=== PATIENT | male | born 1950 | race Caucasian/White ===

== ENCOUNTER 2019-01-25 15:01 | Emergency (ER) | payer MEDICARE, BC ==
[2019-01-25] MEDS ORDERED: HYDROmorphone 1 MG/ML Syringe IM ONE ×4 (15:44→22:44)
[2019-01-25] MEDS ORDERED: Ondansetron 4 MG Tab.DIS PO ONE (15:44)
--- NOTE | 2019-01-25 16:56 | EDM.PDOC ---
<Brien Soto - Last Filed: 01/25/19 18:18> ED HPI GENERAL MEDICAL PROBLEM - General Chief Complaint: Upper Extremity Injury/Pain Stated Complaint: POSSIBLE BROKEN LEFT ARM Time Seen by Provider: 01/25/19 15:43 Source of Information: Reports: Patient History Limitations: Reports: No Limitations - History of Present Illness INITIAL COMMENTS - FREE TEXT/NARRATIVE: This patient slipped on ice just a short while prior to arrival and landed on his left elbow. He complains of severe pain in the left elbow. No other injuries. Left Arm Pain Score (Numeric/FACES): 9 - Related Data Allergies Allergy/AdvReac Type Severity Reaction Status Date / Time vancomycin Allergy Severe Anaphylactic Verified 01/25/19 15:19 Shock Aminoglycosides Allergy Swelling Verified 01/25/19 15:19 clopidogrel Allergy Rash Verified 01/25/19 15:19 Iodinated Contrast- Oral and Allergy Rash Verified 01/25/19 15:19 IV Dye [Iodinated Contrast Media - IV Dye] ticagrelor [From BRILINTA] Allergy Rash Verified 01/25/19 15:19 Home Meds: Home Meds ALPRAZolam [Xanax] 0.5 tab PO BEDTIME PRN 12/07/13 [History] Metoprolol Tartrate [Lopressor] 50 mg PO BID 12/07/13 [History] Imipramine HCl [Tofranil] 50 - 150 mg PO DAILY PRN 06/04/16 [History] Ranitidine HCl [Ranitidine] 150 mg PO BID 06/04/16 [History] Aspirin [Adult Aspirin] 81 mg PO DAILY 05/30/18 [History] Colchicine 0.5 mg PO DAILY 05/30/18 [History] Diltiazem HCl [Diltiazem 24Hr ER] 1 cap PO DAILY 05/30/18 [History] Pravastatin Sodium 20 mg PO QPM 05/30/18 [History] NIFEdipine [Nifedipine ER] 30 mg PO DAILY 06/07/18 [History] Clopidogrel Bisulfate [Clopidogrel] 75 mg PO BEDTIME 01/25/19 [History] Colchicine/Probenecid [Probenecid-Colchicine Tablets] 1 tab PO DAILY 01/25/19 [ History] Furosemide 20 mg PO DAILY 01/25/19 [History] amLODIPine Besylate [Amlodipine Besylate] 10 mg PO DAILY 01/25/19 [History] Past Medical History Cardiovascular History: Reports: High Cholesterol, Hypertension Respiratory History: Reports: Asthma Gastrointestinal History: Reports: Gastritis, GERD Musculoskeletal History: Reports: Back Pain, Chronic Psychiatric History: Reports: Other (See Below) Other Psychiatric History: insomnia - Past Surgical History Cardiovascular Surgical History: Reports: Carotid Stents, Coronary Artery Bypass , Percutaneous Transluminal Angioplasty Respiratory Surgical History: Reports: None GI Surgical History: Reports: Hernia, Abdominal, Nafisa Fundoplication Neurological Surgical History: Reports: Lumbar Spine, Spinal Fusion Social & Family History - Tobacco Use Smoking Status *Q: Never Smoker - Caffeine Use Caffeine Use: Reports: Soda - Recreational Drug Use Recreational Drug Use: No Review of Systems - Review of Systems Review Of Systems: ROS reveals no pertinent complaints other than HPI. ED EXAM, GENERAL - Physical Exam Exam: See Below Exam Limited By: No Limitations General Appearance: Alert, Moderate Distress Extremities: Other (Severe swelling of the left elbow with decreased range of motion. There is some moderate tenderness from the mid shaft the humerus all the way to about the middle of the forearm. Neurovascular tendon is all intact to the hand. This is a closed fracture) Course - Vital Signs Last Recorded V/S: Last Vital Signs Temp 36.2 C 01/25/19 15:53 Pulse 70 01/25/19 18:56 Resp 16 01/25/19 18:56 BP 154/74 H 01/25/19 18:56 Pulse Ox 92 L 01/25/19 18:56 - Orders/Labs/Meds Meds: Medications Discontinued Medications Generic Name Dose Route Start Last Admin Trade Name Shaq PRN Reason Stop Dose Admin Hydromorphone HCl 1 mg 01/25/19 15:44 01/25/19 15:51 Dilaudid IM 01/25/19 15:45 1 mg ONETIME ONE Administration Hydromorphone HCl 1 mg 01/25/19 17:58 01/25/19 18:12 Dilaudid IM 01/25/19 17:59 1 mg ONETIME ONE Administration Hydromorphone HCl 1 mg 01/25/19 20:18 01/25/19 20:27 Dilaudid IM 01/25/19 20:19 1 mg ONETIME ONE Administration Hydromorphone HCl 1 mg 01/25/19 22:44 Dilaudid IM 01/25/19 22:45 ONETIME ONE Ondansetron HCl 4 mg 01/25/19 15:44 01/25/19 15:51 Zofran Odt PO 01/25/19 15:45 4 mg ONETIME ONE Administration - Radiology Interpretation Free Text/Narrative:: Severe comminuted fracture of the proximal radius. Proximal fragment of the ulna rotated and displaced posteriorly - Re-Assessments/Exams Free Text/Narrative Re-Assessment/Exam: 01/25/19 16:56 This patient received Dilaudid 1 mg IM and Zofran ODT 4 mg sublingual. This gave fairly good pain control. 01/25/19 18:18 Orthopedics in [facility] is unable to care for this level of injury. I contacted orthopedics at [facility]. The physician I spoke with said that this would need to go to the upper extremity specialist who is [employer] executive tonight and that doctors in surgery right now and is not expected to be free for about 2 hours. He will give us a call as soon as he is available. In the meantime we placed this man and a sling he's been given a second injection of Dilaudid keep him comfortable he'll be nothing by mouth. And we got him out of the wheelchair into the stretcher. I spoke with Dr. Palafox and she will be assuming care at this time Departure - Departure Disposition: DC/Tfer to [facility] Clinical Impression: Closed comminuted fracture of proximal ulna - Discharge Information Referrals: Enmanuel Keen Sr, [Primary Care Provider] - Forms: ED Department Discharge Care Plan Goals: transfer to The ER at [facility] per basic life support <Rivka Palafox - Last Filed: 01/25/19 22:48> Course - Re-Assessments/Exams Free Text/Narrative Re-Assessment/Exam: pt has continued to receive dilaudid im for pain. [facility] did not feel they had anyone to do this repair. [facility] was contacted and Dr Castaneda was consulted. He felt that a reduction should be done on the elebow. It was also noted on cat scan that he had a large hemarthosis. 01/25/19 22:45 Departure - Departure Time of Disposition: 22:47
--- NOTE | 2019-01-25 17:05 | CRLCR ---
INDICATION: Trauma TECHNIQUE: Two views left forearm COMPARISON: None FINDINGS: Bones: Displaced comminuted fracture proximal ulna. Difficult to evaluate for radial head fracture. Radial head view may be helpful to further characterize. Joint spaces: Unremarkable. Soft tissues: Soft tissue edema dorsal to the proximal forearm. IMPRESSION: Displaced comminuted fracture proximal ulna. Probable radial head fracture. Radial head view may be helpful to further characterize as well as post reduction views. Dictated by Mark Griffith MD @ Jan 25 2019 4:57PM Signed by Dr. Mark Griffith @ Jan 25 2019 5:02PM
--- NOTE | 2019-01-25 17:09 | CRLCR ---
INDICATION: Fall TECHNIQUE: Two views left humerus COMPARISON: None FINDINGS: Bones: Fracture fragments noted adjacent to the proximal forearm. Joint spaces: The left elbow joint is not well characterized due to the obliquity. Soft tissues: Unremarkable. IMPRESSION: Normal left humerus. Puncture fragments project over the proximal forearm. Difficult to evaluate anatomic alignment at the elbow joint due to obliquity. Dictated by Mark Griffith MD @ 01/25/2019 5:07:37 PM Dictated by: Mark Griffith MD @ 01/25/2019 17:07:43 (Electronically Signed)
--- NOTE | 2019-01-25 22:00 | CRLCT ---
HISTORY: Pain and swelling. FINDINGS: The elbow was studied in the short axis. Sagittal and coronal 2 dimensional reconstructions were then performed. Study is limited in that the elbow was in approximately 90 degrees of flexion. There is a severely comminuted fracture of the proximal ulna. This extends into the region of the coronoid process were there is also fragmentation in this region. The large majority of the articular surface appears intact without evidence for step-off. The proximal ulna remains normally located relative to the distal humerus. There is a comminuted transverse fracture through the proximal metaphysis of the radius with a dominant transverse component and several smaller fracture fragments. There appears to be a slight degree of impaction at the fracture site. The radial head is completely dislocated posteriorly relative to the capitellum. There may be several small fragments from the capitellum as well but the distal humerus is intact. Severe surrounding soft tissue edema is noted. IMPRESSION: 1. Severely comminuted fracture of the proximal ulna without significant involvement of the articular surface and without dislocation. 2. Fracture of the right proximal radius with complete posterior dislocation of the radius relative to the capitellum. Please note that all CT scans at this facility use dose modulation, iterative reconstruction, and/or weight-based dosing when appropriate to reduce radiation dose to as low as reasonably achievable. Dictated by Tato Gold MD @ Jan 26 2019 8:10AM Signed by Dr. Tato Gold @ Jan 26 2019 8:10AM
[2019-01-25 22:59] VITALS: BP 152/83
== END 2019-01-26 00:15 ==
LOC: JP.ED 15:01
DX: S52.002A Unspecified fracture of upper end of left ulna, initial encounter for closed fracture (principal); E78.00 Pure hypercholesterolemia, unspecified; I10 Essential (primary) hypertension; J45.909 Unspecified asthma, uncomplicated; K21.9 Gastro-esophageal reflux disease without esophagitis; W00.0XXA Fall on same level due to ice and snow, initial encounter; Z88.1 Allergy status to other antibiotic agents; Z88.8 Allergy status to other drugs, medicaments and biological substances; Z79.899 Other long term (current) drug therapy
CPT/HCPCS: 73060; 73090; 73200; 96372; 99284; A9270; J1170

== ENCOUNTER 2019-08-10 07:53 | Day surgery (SDC) | payer MEDICARE, BC ==
[~2019-08-10 07:53] MED LIST: Bupivacaine 0.5%/EPINEPHrine 1:200,000 50 ML MDV ONE
[2019-08-10] MEDS ORDERED: fentaNYL 100 MCG/2 ML SDV ONE (08:01)
[2019-08-10] MEDS ORDERED: Midazolam 1 MG/ML 2 ML SDV ONE (08:01)
[2019-08-10] MEDS ORDERED: Propofol 200 MG/20 ML SDV ONE (08:01)
[2019-08-10] MEDS ORDERED: Acetaminophen 500 MG Tab PO ONE (08:15)
[2019-08-10] MEDS ORDERED: Dextrose 5%-Lactated Ringers 1,000 ML IV SCH (08:30)
[2019-08-10] MEDS ORDERED: cefOXitin 2 GM in Sodium Chloride 0.9% 50 ML IV ONE (09:00)
[2019-08-10] MEDS ORDERED: Succinylcholine 200 MG/10 ML MDV ONE (09:23)
[2019-08-10] MEDS ORDERED: Dexamethasone 4 MG/ML SDV ONE (09:23)
[2019-08-10] MEDS ORDERED: Ondansetron 4 MG/2 ML SDV ONE (09:23)
[2019-08-10] MEDS ORDERED: Rocuronium 50 MG/5 ML Vial ONE (09:23)
[2019-08-10] MEDS ORDERED: Tamsulosin 0.4 MG Cap.ER PO ONE (11:18)
[2019-08-10] MEDS ORDERED: Acetaminophen/HYDROcodone 325-5 MG Tab PO PRN (11:28)
[2019-08-10 11:57] VITALS: BP 133/74; PULSE 51
[2019-08-10] MEDS ORDERED: Meropenem 500 MG in Sodium Chloride 0.9% 50 ML IV ONE (12:00)
--- NOTE | 2019-08-13 13:50 | OR ---
DATE OF PROCEDURE: 08/10/2019 SURGEON: Adam Saucedo MD PREOPERATIVE DIAGNOSIS: Symptomatic prolapsing hemorrhoids. POSTOPERATIVE DIAGNOSES: 1. Symptomatic prolapsing hemorrhoids. 2. Circumferential mucosal rectal prolapse. OPERATIVE PROCEDURES: Anal examination under anesthesia with: 1. Proctopexy for rectal prolapse via peritoneal approach (06605). 2. Hemorrhoidectomy (single column of the mixed hemorrhoid )(81460). ANESTHESIA: General. INDICATION FOR PROCEDURE: A 69-year-old presenting with increasingly symptomatic prolapsing hemorrhoids. The plan was to do anorectal examination under anesthesia. Each one of the hemorrhoids was visually prolapsed with some degree of thrombosis, and the patient reports the second hemorrhoid is prolapsing. The plan is to proceed with hemorrhoidectomy and/or other procedures as indicated, based on the intraoperative findings. Potential risks including bleeding, infection, problems with anal incontinence following the procedure, along with remote possibility of cardiopulmonary, septic, or hemorrhagic complications leading to were discussed, and the patient wishes to proceed. DETAILS OF PROCEDURE: The patient was taken to the operating room and placed in a supine position. After general endotracheal anesthesia was induced, the rectal area was then prepped and draped. Digital examination showed an intact musculature. The patient did have quite a bit in the way of loose mucosa. There was a single column of hemorrhoid that was prolapsing. He was seen in the clinic with a small amount of clot within it. The patient was allowed to get some light anesthesia, and with bearing down, the patient had a quite dramatic diffuse circumferential rectal prolapse, again the musculature remaining intact. Given this, we decided at that point to proceed with proctopexy via rectal approach with staple technique, as anything short of that would likely leave the patient with quite a bit in the way of symptoms, and then we will proceed with excision of the single bleeding hemorrhoidal column, which has some clot within it and will likely remain fairly symptomatic. At this point, the anoscope was then passed into the rectum and a pursestring stitch using 3- 0 Prolene was placed roughly 4 to 5 cm above the dentate line. This was placed circumferentially. The proctopexy stapler was then placed with the anvil positioned above the level of the pursestring stitch, and the suture was then pulled tight along the shaft of the stapler, which was then closed and the stapler fired. Upon removal of the stapler, a nice circumferential layer of rectal mucosa was visualized, and there was good upward extension of the rectal mucosa with no further evidence of prolapse. The area was inspected. No significant bleeding from the staple line was seen, and the staple line was palpable circumferentially, i.e. was intact throughout 360 degree area of the staple firing. A single mixed column of hemorrhoid was then excised. This was done with 2 steps so as to avoid some distortion of the anorectal configuration. The prolapsing tag was initially excised with placement of a clamp across its base and excised with electrocautery. This was suture-ligated with 4-0 Vicryl stitch. The hemorrhoid, including the thrombus, was then also similarly excised. This likewise was closed with a suture-ligature of 4-0 Vicryl stitch. The area of hemorrhoidectomy was anesthetized with 0.5% Marcaine, and at that point, no further problems were noted. The patient was taken to the recovery room in satisfactory condition. There were no evident complications. Adam Saucedo MD /[id number]
== END 2019-08-10 13:50 | disposition home or self-care (01) ==
LOC: JP.SDS 07:53
PROVIDERS: ATTEND Surgery
DX: K64.8 Other hemorrhoids (principal); K62.3 Rectal prolapse; E78.5 Hyperlipidemia, unspecified; I10 Essential (primary) hypertension; I25.10 Atherosclerotic heart disease of native coronary artery without angina pectoris; J45.909 Unspecified asthma, uncomplicated; M10.9 Gout, unspecified
CPT/HCPCS: 36415; 45541; 46255; 80048; 83735; 83880; 84100; 85027; 93005; A9270; J0330; J0694; J1100; J2185; J2250; J2405; J2704; J3010; J3490; J7042; J7050

== ENCOUNTER 2019-08-13 07:31 | Emergency (ER) | payer MEDICARE, BC ==
[2019-08-13 07:44] VITALS: BP 142/48; PULSE 51
--- NOTE | 2019-08-13 08:27 | EDM.PDOC ---
ED HPI GENERAL MEDICAL PROBLEM - General Chief Complaint: General Stated Complaint: SURGERY 08/10/19 BLEEDING Time Seen by Provider: 08/13/19 08:20 Source of Information: Reports: Patient, RN Notes Reviewed History Limitations: Reports: No Limitations - History of Present Illness INITIAL COMMENTS - FREE TEXT/NARRATIVE: 69-year-old gentleman presents to the emergency department today with complaint of rectal be leaning, states he had hemorrhoidectomy surgery 2 days prior was doing well then early this morning sudden onset of bright red blood per rectum, he feels a little lightheaded. No signs of infection no fever no nausea or vomiting - Related Data Allergies Allergy/AdvReac Type Severity Reaction Status Date / Time vancomycin Allergy Severe Anaphylactic Verified 08/13/19 07:48 Shock Aminoglycosides Allergy Swelling Verified 08/13/19 07:48 clopidogrel Allergy Rash Verified 08/13/19 07:48 Iodinated Contrast Media Allergy Rash Verified 08/13/19 07:48 [Iodinated Contrast Media - IV Dye] ticagrelor [From BRILINTA] Allergy Rash Verified 08/13/19 07:48 Home Meds: Home Meds ALPRAZolam [Xanax] 0.5 tab PO BEDTIME PRN 12/07/13 [History] Metoprolol Tartrate [Lopressor] 50 mg PO BID 12/07/13 [History] Imipramine HCl [Tofranil] 50 - 150 mg PO DAILY PRN 06/04/16 [History] Aspirin [Adult Aspirin] 81 mg PO DAILY 05/30/18 [History] Pravastatin Sodium 20 mg PO QPM 05/30/18 [History] NIFEdipine [Nifedipine ER] 30 mg PO DAILY 06/07/18 [History] Colchicine/Probenecid [Probenecid-Colchicine Tablets] 1 tab PO DAILY 01/25/19 [ History] Nitroglycerin [Nitrostat] 0.4 mg SL ASDIRECTED 08/09/19 [History] Past Medical History HEENT History: Reports: Impaired Vision Cardiovascular History: Reports: High Cholesterol, Hypertension Respiratory History: Reports: Asthma, Other (See Below) Other Respiratory History: NONE RECENTLY Gastrointestinal History: Reports: Gastritis, GERD, Hemorrhoids Musculoskeletal History: Reports: Back Pain, Chronic Neurological History: Reports: Head Trauma Other Neuro History: 1991, FEEL FROM [place] Psychiatric History: Reports: Anxiety, Other (See Below) Other Psychiatric History: insomnia - Past Surgical History HEENT Surgical History: Reports: TRISH Other HEENT Surgeries/Procedures: 2002 Cardiovascular Surgical History: Reports: Carotid Stents, Coronary Artery Bypass , Percutaneous Transluminal Angioplasty Respiratory Surgical History: Reports: None GI Surgical History: Reports: Hernia, Abdominal, Nafisa Fundoplication Other GI Surgeries/Procedures: hemorhoidectomy Neurological Surgical History: Reports: Lumbar Spine, Spinal Fusion Musculoskeletal Surgical History: Reports: Other (See Below) Other Musculoskeletal Surgeries/Procedures:: BACK SURGERY X2, FX ELBOW 01/25/19 WITH SURGERY Social & Family History - Tobacco Use Smoking Status *Q: Never Smoker - Caffeine Use Caffeine Use: Reports: Soda Other Caffeine Use: 1X/DAY - Recreational Drug Use Recreational Drug Use: No ED ROS GENERAL - Review of Systems Review Of Systems: See Below Constitutional: Reports: No Symptoms HEENT: Reports: No Symptoms Respiratory: Reports: No Symptoms Cardiovascular: Reports: No Symptoms GI/Abdominal: Reports: Bloody Stool, Hematochezia ED EXAM, GENERAL - Physical Exam Exam: See Below Free Text/Narrative:: Examination of the rectum I don't appreciate any active bleeding site good sphincter tone there is a marked amount of fresh blood and dried blood around the rectum Exam Limited By: No Limitations General Appearance: Alert, WD/WN, No Apparent Distress Respiratory/Chest: No Respiratory Distress Course - Vital Signs Last Recorded V/S: Last Vital Signs Temp 96.8 F 08/13/19 07:47 Pulse 51 L 08/13/19 07:47 Resp 18 08/13/19 07:47 BP 142/48 H 08/13/19 07:47 Pulse Ox 97 08/13/19 07:47 - Orders/Labs/Meds Labs: Laboratory Tests 08/13/19 08/13/19 Range/Units 08:40 08:40 WBC 13.1 H (4.5-11.0) K/uL RBC 3.98 L (4.30-5.90) M/uL Hgb 11.9 L D (12.0-15.0) g/dL Hct 36.2 L (40.0-54.0) % MCV 91 (80-98) fL MCH 30 (27-31) pg MCHC 33 (32-36) % Plt Count 247 (150-400) K/uL Neut % (Auto) 78 H (36-66) % Lymph % (Auto) 9 L (24-44) % Alfalfa % (Auto) 10 H (2-6) % Eos % (Auto) 2 (2-4) % Baso % (Auto) 0 (0-1) % Sodium 136 L (140-148) mmol/L Potassium 4.9 (3.6-5.2) mmol/L Chloride 103 (100-108) mmol/L Carbon Dioxide 25 (21-32) mmol/L Anion Gap 12.9 (5.0-14.0) mmol/L BUN 20 H (7-18) mg/dL Creatinine 1.5 H (0.8-1.3) mg/dL Est Cr Clr Drug Dosing 45.60 mL/min Estimated GFR (MDRD) 47 L (>60) Glucose 143 H (74-106) mg/dL Calcium 8.6 (8.5-10.1) mg/dL Departure - Departure Time of Disposition: 09:32 Disposition: Home, Self-Care 01 Condition: Fair Clinical Impression: Post-op bleeding Qualifiers: Surgical complication system/body Area: digestive system Procedure type: non- digestive system Qualified Code(s): K91.841 - Postprocedural hemorrhage of a digestive system organ or structure following other procedure - Discharge Information Referrals: Enmanuel Keen Sr, MD [Primary Care Provider] - Forms: ED Department Discharge Additional Instructions: Called the [facility] tomorrow morning for an appointment time with Dr. Saucedo this week call return to the emergency department worsening of symptoms - Assessment/Plan Plan: Assessment Acuity = acute Site and laterality = postop bleeding from hemorrhoidectomy Etiology = unknown etiology Manifestations = none Location of injury = Home Lab values = hemoglobin low 11.9 consistent with a normochromic anemia, BMP unremarkable Plan Discussed case with Dr. Saucedo at 925 recommended watchful waiting at this time he does have a follow-up appointment set up this week return to the emergency department worsening of symptoms This note was dictated using [employer] voice recognition software please call with any questions on syntax or grammar.
== END 2019-08-13 09:54 | disposition home or self-care (01) ==
LOC: JP.ED 07:31
DX: K91.841 Postprocedural hemorrhage of a digestive system organ or structure following other procedure (principal); I10 Essential (primary) hypertension; E78.5 Hyperlipidemia, unspecified; F41.9 Anxiety disorder, unspecified; J45.909 Unspecified asthma, uncomplicated; Z79.899 Other long term (current) drug therapy; Z88.8 Allergy status to other drugs, medicaments and biological substances; Z88.1 Allergy status to other antibiotic agents; Z91.041 Radiographic dye allergy status
CPT/HCPCS: 36415; 80048; 85025; 99283

== ENCOUNTER 2020-06-09 05:21 | Day surgery (SDC) | payer MEDICARE, BC ==
[2020-06-09] MEDS ORDERED: Dextrose 5%-Lactated Ringers 1,000 ML IV SCH (06:00)
[2020-06-09] MEDS ORDERED: Lidocaine 1% with EPINEPHrine 1:100,000 50 ML MDV ONE (06:53)
[2020-06-09] MEDS ORDERED: fentaNYL 100 MCG/2 ML SDV ONE (07:06)
[2020-06-09] MEDS ORDERED: Propofol 200 MG/20 ML SDV ONE (07:06)
[2020-06-09] MEDS ORDERED: Midazolam 1 MG/ML 2 ML SDV ONE (07:06)
[2020-06-09] MEDS ORDERED: Glycopyrrolate 0.2 MG/ML 5 ML MDV ONE (07:06)
[2020-06-09] MEDS ORDERED: Lidocaine 0.5% 50 ML SDV ONE (07:08)
[2020-06-09] MEDS ORDERED: ceFAZolin 2 GM in Premix Bag 1 BAG IV ONE (07:15)
[2020-06-09] MEDS ORDERED: Acetaminophen 325 MG Tab PO ONE (08:32)
[2020-06-09 10:10] VITALS: BP 131/61; PULSE 44
--- NOTE | 2020-06-16 13:48 | OR ---
DATE OF PROCEDURE: 06/09/2020 SURGEON: Adam Saucedo MD PREOPERATIVE DIAGNOSIS: Trigger digit, left small finger. POSTOPERATIVE DIAGNOSIS: Trigger digit, left small finger. OPERATIVE PROCEDURE: Release of trigger digit left small finger (67106). ANESTHESIA: IV block plus sedation. INDICATIONS FOR PROCEDURE: This is a 69-year-old male presenting with progressively more bothersome triggering of his left fifth small finger. The plan is to proceed with trigger digit release. Potential risks including bleeding, infection, possible incomplete relief of symptoms, possible tearing of the nerve or injury in the area were reviewed, and the patient wishes to proceed. DETAILS OF PROCEDURE: The patient was taken to the operating room, and after IV block was placed affecting the left forearm and hand, then IV sedation administered. The area over the domo overlying the metacarpophalangeal joint was palpated and transverse incision was made over that and continued down through the skin, soft tissues, which was then retracted over the center of the area of the involved domo. The superficial aspect of this was then excised and then the tendon sheath divided proximally and distally excising small amount of a left lower aspect of that. This was roughly 2 to 3 cm in each direction from the domo to allow free motion of the tendon which was confirmed. The incision was then closed with 4- 0 Vicryl stitch deep and a 5-0 Prolene skin stitch. Dressing was applied. The patient was taken to the recovery room in satisfactory condition. Of note, the patient was noted to have a junctional rhythm with heart rate around 40, but otherwise hemodynamically stable preoperatively Dr. Keen for review in the next day or 2. Adam Saucedo MD /[id number]
== END 2020-06-09 09:45 | disposition home or self-care (01) ==
LOC: JP.SDS 05:21
PROVIDERS: ATTEND Surgery
DX: M65.352 Trigger finger, left little finger (principal); E78.5 Hyperlipidemia, unspecified; M72.8 Other fibroblastic disorders
CPT/HCPCS: 26055; 88304; 93005; 93010; A9270; J0690; J2001; J2250; J2704; J3010; J7121; J3490

== ENCOUNTER 2020-08-21 10:53 | Day surgery (SDC) | payer MEDICARE, BC ==
[~2020-08-21 10:53] MED LIST changes: -Bupivacaine 0.5%/EPINEPHrine 1:200,000 50 ML MDV ONE; +Lidocaine 1% 50 ML MDV ONE; +Lidocaine 1% with EPINEPHrine 1:100,000 50 ML MDV ONE
[2020-08-21] MEDS ORDERED: fentaNYL 100 MCG/2 ML SDV ONE (10:56)
[2020-08-21] MEDS ORDERED: Lidocaine 0.5% 50 ML SDV ONE (10:56)
[2020-08-21] MEDS ORDERED: Midazolam 1 MG/ML 2 ML SDV ONE (10:56)
[2020-08-21] MEDS ORDERED: Propofol 200 MG/20 ML SDV ONE ×2 (10:56→12:50)
[2020-08-21] MEDS ORDERED: Acetaminophen 500 MG Tab PO ONE (11:00)
[2020-08-21] MEDS ORDERED: Dextrose 5%-Lactated Ringers 1,000 ML IV SCH (11:30)
[2020-08-21] MEDS ORDERED: ceFAZolin 2 GM in Premix Bag 1 BAG IV ONE (12:00)
[2020-08-21] MEDS ORDERED: fentaNYL 100 MCG/2 ML SDV IVPUSH ONE (13:19)
[2020-08-21] MEDS ORDERED: Acetaminophen/oxyCODONE 325-5 MG Tab PO PRN (13:50)
[2020-08-21 14:39] VITALS: BP 172/76; PULSE 72
--- NOTE | 2020-08-26 12:43 | OR ---
DATE OF PROCEDURE: 08/21/2020 SURGEON: Adam Saucedo MD PREOPERATIVE DIAGNOSIS: Trigger digits involving left middle finger and left ring finger. POSTOPERATIVE DIAGNOSIS: Trigger digits involving left middle finger and left ring finger. OPERATIVE PROCEDURE: 1. Release of trigger digit involving left middle finger (50660). 2. Release of trigger digit involving the left ring finger (86416). ANESTHESIA: IV block plus sedation. INDICATIONS FOR PROCEDURE: This is a 70-year-old male presenting with trigger digits involving the left middle and ring fingers. He has undergone a previous trigger digit release from the left small finger and presents now for release of the currently symptomatic trigger digits. Potential risks of the procedure including bleeding, infection, injury to the nerves in the area, possible incomplete relief of symptoms were reviewed, and the patient wishes to proceed. DETAILS OF PROCEDURE: The patient was taken to the operating room and placed in a supine position. IV sedation was administered after which an intravenous block was placed affecting the left forearm and hand. Those areas were then prepped and draped. In each case over the metacarpophalangeal joint, the palpable area of thickness was identified and a transversely oriented incision was made and carried down through the skin and subcutaneous tissue. The flexor tendon sheath over that area was then roofed from the thickened domo over the metacarpophalangeal joint and then proximally and distally to a length of 1.5 to 2 cm as well. In each case then, the tendon was noted to pass smoothly through the area of dissection through a full range of motion and subcutaneous tissue was then reapproximated with some 4-0 Vicryl stitch and the skin with a 5-0 Prolene stitch. Dressings were applied. The patient was taken to the recovery room in satisfactory condition. Adam Saucedo MD /[id number]
== END 2020-08-21 14:39 | disposition home or self-care (01) ==
LOC: JP.SDS 10:53
PROVIDERS: ATTEND Surgery
DX: M65.332 Trigger finger, left middle finger (principal); M65.342 Trigger finger, left ring finger; I10 Essential (primary) hypertension
CPT/HCPCS: 26055; A9270; J0690; J2001; J2250; J2704; J3010; J7121

== ENCOUNTER 2020-10-23 06:14 | Day surgery (SDC) | payer MEDICARE, BC ==
[2020-10-23] MEDS ORDERED: fentaNYL 100 MCG/2 ML SDV ONE (07:14)
[2020-10-23] MEDS ORDERED: Midazolam 1 MG/ML 2 ML SDV ONE (07:14)
[2020-10-23] MEDS: Sodium Chloride 0.9% 1,000 ML IV SCH (07:15)
[2020-10-23] MEDS ORDERED: Propofol 200 MG/20 ML SDV ONE (07:15)
--- NOTE | 2020-10-23 08:47 | PROC ---
DATE OF PROCEDURE: 10/23/2020 SURGEON: Enmanuel Keen MD INDICATIONS: Dean is a 70-year-old male, comes in for a screening colonoscopy. The risks and benefits were explained to the patient and was taken to the OR. PROCEDURE IN DETAIL: Anesthesia was given by nurse senior financial consultant. During the procedure, we used 80 mg of propofol, 2 mg of Versed, and 100 mcg of fentanyl. The Olympus 180L scope was used and was placed into the rectum and advanced under direct vision. At 50 cm, noted a large amount of stool, unable to pass due to the paucity of stool that was present. The procedure was canceled. PREOPERATIVE DIAGNOSIS: Screening colonoscopy. POSTOPERATIVE DIAGNOSIS: Unable to evaluate secondary to stool-failed colonoscopy. Enmanuel Keen MD /[id number]
[2020-10-23 08:55] VITALS: BP 121/65; PULSE 72
== END 2020-10-23 09:46 | disposition home or self-care (01) ==
LOC: JP.SDS 06:14
PROVIDERS: ATTEND Internal Medicine
DX: Z12.11 Encounter for screening for malignant neoplasm of colon (principal); I10 Essential (primary) hypertension; I25.10 Atherosclerotic heart disease of native coronary artery without angina pectoris; M10.9 Gout, unspecified
CPT/HCPCS: J2250; J2704; J3010; J7030

== ENCOUNTER 2021-05-25 11:26 | Inpatient (IN) | payer MEDICARE, BC ==
[2021-05-25] MEDS ORDERED: ALPRAZolam 0.5 MG Tab PO PRN (12:12)
[2021-05-25] MEDS ORDERED: Ketorolac 10 MG Tab PO PRN (12:12)
[2021-05-25] MEDS: Sodium Chloride 0.9% 1,000 ML IV SCH ×2 (12:34→17:58)
[2021-05-25] MEDS ORDERED: Propofol 200 MG/20 ML SDV ONE (13:14)
[2021-05-25] MEDS ORDERED: fentaNYL 100 MCG/2 ML SDV ONE (13:14)
--- NOTE | 2021-05-25 14:44 | PCM.HP.2 ---
H&P History of Present Illness - General Date of Service: 05/25/21 Admit Problem/Dx: Admission Diagnosis/Problem Admission Diagnosis/Problem Anemia due to blood loss Source of Information: Patient History Limitations: Reports: No Limitations - History of Present Illness Initial Comments - Free Text/Narative: Andrea is a 70-year-old male who came into the office having chills and feeling weak. He's been having black stools with intermittent red blood as well and also vomiting up the same for 4-5 days. He complains of having significant abdominal pain in the upper right quadrant area. He does have history of stomach ulcers in the past with surgeries. He has been taking 81 mg of aspirin daily. Onset of Symptoms: Reports: Gradual Duration of Symptoms: Reports: Day(s): Location: Reports: Abdomen Quality: Reports: Ache Severity: Moderate Worsens with: Reports: None Associated Symptoms: Reports: Nausea/Vomiting, Weakness - Related Data Allergies/Adverse Reactions: Allergies Allergy/AdvReac Type Severity Reaction Status Date / Time hydralazine Allergy Severe Anaphylactic Verified 10/23/20 06:54 Shock vancomycin Allergy Severe Anaphylactic Verified 10/23/20 06:54 Shock Aminoglycosides Allergy Swelling Verified 10/23/20 06:54 clopidogrel Allergy Rash Verified 10/23/20 06:54 Iodinated Contrast Media Allergy Rash Verified 10/23/20 06:54 [Iodinated Contrast Media - IV Dye] ticagrelor [From [facility]] Allergy Rash Verified 10/23/20 06:54 Home Medications: Home Meds ALPRAZolam [Xanax] 0.5 mg PO BEDTIME PRN 12/07/13 [History] Aspirin [Adult Aspirin] 81 mg PO DAILY 05/30/18 [History] Colchicine/Probenecid [Probenecid-Colchicine] 1 tab PO DAILY 01/25/19 [History] Doxazosin Mesylate [Cardura] 4 mg PO DAILY 10/21/20 [History] Imipramine HCl 150 mg PO BEDTIME 10/21/20 [History] Isosorbide Mononitrate [Imdur] 30 mg PO DAILY 10/21/20 [History] amLODIPine Besylate [Amlodipine Besylate] 10 mg PO DAILY 10/21/20 [History] atorvaSTATin Calcium [Atorvastatin Calcium] 80 mg PO DAILY 10/21/20 [History] lisinopriL [Lisinopril] 10 mg PO DAILY 10/21/20 [History] Past Medical History HEENT History: Reports: None Cardiovascular History: Reports: CAD, High Cholesterol, Hypertension, Pacemaker, Stents Respiratory History: Reports: Asthma, Other (See Below) Other Respiratory History: NONE RECENTLY Gastrointestinal History: Reports: Gastritis, GERD, Hemorrhoids, Hiatal Hernia, Other (See Below) Other Gastrointestinal History: bleeding ulcer hx Musculoskeletal History: Reports: Arthritis, Back Pain, Chronic, Gout Other Musculoskeletal History: bilat hip pain Neurological History: Reports: Concussion, Head Trauma Other Neuro History: 1991, FELL FROM [place] Psychiatric History: Reports: Anxiety, Other (See Below) Other Psychiatric History: insomnia Endocrine/Metabolic History: Reports: Obesity/BMI 30+ Hematologic History: Reports: Blood Transfusion(s) Dermatologic History: Reports: Psoriasis - Infectious Disease History Infectious Disease History: Reports: Chicken Pox, Measles - Past Surgical History HEENT Surgical History: Reports: LASIK Other HEENT Surgeries/Procedures: 2002 Cardiovascular Surgical History: Reports: Carotid Stents, Coronary Artery Bypass, Percutaneous Transluminal Angioplasty Respiratory Surgical History: Reports: None GI Surgical History: Reports: Colon, EGD, Hernia, Abdominal, Nafisa Fundoplication Other GI Surgeries/Procedures: hemorhoidectomy Endocrine Surgical History: Reports: None Neurological Surgical History: Reports: Lumbar Spine, Spinal Fusion Other Neurological Surgeries/Procedures: back surgery x 2 Musculoskeletal Surgical History: Reports: Arthroscopic Knee, Other (See Below) Other Musculoskeletal Surgeries/Procedures:: BACK SURGERY X2, FX ELBOW 01/25/19 WITH SURGERY, RIGHT KNEE. ACL, LEFT FOOT FUSED Dermatological Surgical History: Reports: None Social & Family History - Family History Family Medical History: No Pertinent Family History - Tobacco Use Tobacco Use Status *Q: Never Tobacco User Second Hand Smoke Exposure: No - Caffeine Use Caffeine Use: Reports: Soda Other Caffeine Use: 1X/DAY - Alcohol Use Days Per Week of Alcohol Use: 0 - Recreational Drug Use Recreational Drug Use: No H&P Review of Systems - Review of Systems: Review Of Systems: See Below General: Reports: Weakness HEENT: Reports: No Symptoms Pulmonary: Reports: No Symptoms Cardiovascular: Reports: No Symptoms Gastrointestinal: Reports: Abdominal Pain, Black Stool, Bloody Stool, Diarrhea, Decreased Appetite, Nausea Genitourinary: Reports: No Symptoms Musculoskeletal: Reports: No Symptoms Skin: Reports: No Symptoms Psychiatric: Reports: No Symptoms Neurological: Reports: No Symptoms Hematologic/Lymphatic: Reports: Anemia Exam - Exam Exam: See Below - Vital Signs Vital Signs: Last Vital Signs Temp 95.8 F L 05/25/21 14:27 Pulse 70 05/25/21 14:27 Resp 20 05/25/21 14:27 BP 117/43 L 05/25/21 14:27 Pulse Ox 93 L 05/25/21 14:27 Weight: 189 lb 8 oz - Exam General: Alert, Mild Distress HEENT: PERRLA, Conjunctiva Clear, EACs Clear Neck: Supple, Trachea Midline, 2 Lungs: Clear to Auscultation, Normal Respiratory Effort Cardiovascular: Regular Rate, Regular Rhythm GI/Abdominal Exam: Tender - Patient Data Lab Results Last 24 hrs: Laboratory Results - last 24 hr 05/25/21 05/25/21 05/25/21 Range/Units 12:35 12:35 12:35 WBC 8.7 (4.5-11.0) K/uL RBC 2.42 L (4.30-5.90) M/uL Hgb 7.2 L D (12.0-15.0) g/dL Hct 22.0 L (40.0-54.0) % MCV 91 (80-98) fL MCH 30 (27-31) pg MCHC 33 (32-36) % Plt Count 215 (150-400) K/uL Neut % (Auto) 69.3 H (36-66) % Lymph % (Auto) 15.1 L (24-44) % [place] % (Auto) 10.3 H (2-6) % Eos % (Auto) 5.0 H (2-4) % Baso % (Auto) 0.3 (0-1) % Sodium 139 L (140-148) mmol/L Potassium 3.8 (3.6-5.2) mmol/L Chloride 103 (100-108) mmol/L Carbon Dioxide 24 (21-32) mmol/L Anion Gap 15.8 H (5.0-14.0) mmol/L BUN 25 H (7-18) mg/dL Creatinine 1.3 (0.8-1.3) mg/dL Est Cr Clr Drug Dosing 51.88 mL/min Estimated GFR (MDRD) 55 L (>60) Glucose 125 H (74-106) mg/dL Calcium 8.6 (8.5-10.1) mg/dL Total Bilirubin 0.4 (0.2-1.0) mg/dL AST 17 (15-37) U/L ALT 30 (12-78) U/L Alkaline Phosphatase 115 (46-116) U/L Total Protein 5.8 L (6.4-8.2) g/dL Albumin 3.4 (3.4-5.0) g/dL Globulin 2.4 (2.3-3.5) g/dL Albumin/Globulin Ratio 1.4 (1.2-2.2) Blood Type A POSITIVE Gel Antibody Screen Negative Crossmatch See Detail Result Diagrams: 05/27/21 04:20 05/27/21 04:20 Sepsis Event Note - Evaluation Sepsis Screening Result: No Definite Risk - Focused Exam Vital Signs: Vital Signs Temp Temp Pulse Resp BP Pulse Ox 05/25/21 14:27 95.8 F L 70 20 117/43 L 93 L 05/25/21 14:15 97.5 F 72 14 107/49 L 94 L 05/25/21 14:10 74 14 102/46 L 94 L 05/25/21 14:05 70 14 98/47 L 94 L 05/25/21 14:00 70 14 98/47 L 97 05/25/21 13:55 97.7 F 72 14 94/40 L 99 05/25/21 12:22 95.5 F L 71 20 120/44 L 99 Problem List Initiated/Reviewed/Updated: Yes Orders Last 24hrs: Active Orders 24 hr Category Date Time Status Patient Status [ADT] Routine ADT 05/25/21 12:06 Active Height and Weight [RC] 0500 Care 05/25/21 12:06 Active Intake and Output [RC] QSHIFT Care 05/25/21 12:09 Active Oxygen Therapy [RC] PRN Care 05/25/21 12:06 Active Up ad Helen [RC] ASDIRECTED Care 05/25/21 12:06 Active Up to Chair [RC] QID Care 05/25/21 12:06 Active VTE/DVT Education [RC] Per Unit Routine Care 05/25/21 12:06 Active Vital Signs [RC] Q4H Care 05/25/21 12:06 Active Nothing per Oral Now Diet [DIET] Diet 05/25/21 Dinner Active Chest 1V Frontal [CR] Routine Exams 07/19/21 12:06 Taken RED BLOOD CELLS LP [BBK] Routine Lab 05/25/21 12:35 Results TYPE AND SCREEN [BBK] Routine Lab 05/25/21 12:35 Results ALPRAZolam [Xanax] Med 05/25/21 12:12 Active 0.5 mg PO BEDTIME PRN Doxazosin [Cardura] Med 05/26/21 09:00 Active 4 mg PO DAILY Imipramine HCl Med 05/25/21 21:00 Active 150 mg PO BEDTIME Isosorbide Mononitrate [Imdur] Med 05/26/21 07:30 Active 30 mg PO DAILY@30 Ketorolac [Toradol] Med 05/25/21 12:12 Active 10 mg PO TID PRN Pantoprazole [ProTONIX IV] Med 05/25/21 15:00 Once 80 mg IVPUSH ONETIME ONE Sodium Chloride 0.9% [Normal Saline] 1,000 ml Med 05/25/21 12:15 Active IV ASDIRECTED amLODIPine [Norvasc] Med 05/26/21 09:00 Active 10 mg PO DAILY atorvaSTATin [Lipitor] Med 05/26/21 09:00 Active 80 mg PO DAILY lisinopriL [Prinivil] Med 05/26/21 09:00 Active 10 mg PO DAILY Resuscitation Status Routine Resus Stat 05/25/21 12:06 Ordered Medication Orders Alprazolam (Alprazolam 0.5 Mg Tab) 0.5 mg PO BEDTIME PRN PRN Reason: Anxiety Amlodipine Besylate (Amlodipine 5 Mg Tab) 10 mg PO DAILY [facility] Atorvastatin Calcium (Atorvastatin 20 Mg Tab) 80 mg PO DAILY [facility] Doxazosin Mesylate (Doxazosin 4 Mg Tab) 4 mg PO DAILY [facility] Sodium Chloride (Normal Saline) 1,000 mls @ 125 mls/hr IV ASDIRECTED [facility] Last Admin: 05/25/21 12:34 Dose: 125 mls/hr Documented by: LUIS Imipramine HCl (Imipramine Hcl 25 Mg Tab) 150 mg PO BEDTIME [facility] Isosorbide Mononitrate (Isosorbide Mononitrate 30 Mg Tab.Er) 30 mg PO DAILY@0730 [facility] Ketorolac Tromethamine (Ketorolac 10 Mg Tab) 10 mg PO TID PRN PRN Reason: Pain Stop: 07/24/21 12:13 Lisinopril (Lisinopril 10 Mg Tab) 10 mg PO DAILY [facility] Assessment/Plan Comment:: Assessment/Plan: #1. GI Blood Loss probably duodenal ulcer. He was admitted to the hospital and will do an EGD to find the reason for the significant blood loss as his hemoglobin is 7.1. #2. Abdominal Pain: history of gastric surgery secondary to bleeding ulcer. #3. ASHD: Stent placement 3 years ago #4. Bradycardia with pacemaker placement: #5. GERD: Chronic #6. Gout: Not active presently
--- NOTE | 2021-05-25 14:47 | CR ---
CHEST: Portable 05/25/2021 at 1:18 PM CLINICAL HISTORY:Check lung lesion COMPARISON:None FINDINGS: Heart is mildly enlarged pulmonary vascularity is normal. Patient has had previous sternotomy. There is a permanent cardiac pacer. There is some patchy density in the left lung base which may represent some chronic pleural parenchymal scarring or patchy atelectasis. Infiltrate is felt less likely. There is some blunting the costophrenic angle which may be chronic or due to minimal effusion. IMPRESSION: Limited study Mild cardiomegaly Mild patchy opacity in the left lung base may be some chronic pleural parenchymal scarring, atelectasis or less likely infiltrate
[2021-05-25] MEDS ORDERED: Pantoprazole 40 MG Vial IVPUSH ONE (15:00)
[2021-05-25] MEDS: Pantoprazole 80 MG in Sodium Chloride 0.9% 100 ML IV SCH (15:41)
[2021-05-26] MEDS: Pantoprazole 80 MG in Sodium Chloride 0.9% 100 ML IV SCH ×3 (01:49→21:00)
[2021-05-26] MEDS: Sodium Chloride 0.9% 1,000 ML IV SCH (01:49)
--- NOTE | 2021-05-26 06:43 | PROC ---
DATE OF PROCEDURE: 05/25/2021 SURGEON: Enmanuel Keen MD INDICATIONS: Dean is a 70-year-old male who came in the office this morning. He said he was having black stools, also seeing red intermixed with the black and also vomiting black and red blood material. This has been going on for 4 days and he is feeling weak. He points to pain in his upper right quadrant area. The risks and benefits were explained to the patient to have an esophagogastroduodenoscopy. PROCEDURE IN DETAIL: Anesthesia was given by nurse media analyst, 100 mcg of fentanyl and 100 mg of propofol. The Olympus 180 scope was used, first placed into the pharynx without difficulty and advanced under direct vision into the body of the stomach. There was significant amount of food in the stomach. We got good observation of the fundus. We then went into the first part of the small intestine and noted a bleeding ulcer initially. I was unable to advance further into the small intestine. A picture was taken of the area. Upon retraction of the tube, the stomach again was unremarkable. The GE junction was identified and there was a small hiatal hernia noted. The tube was slowly retracted through the esophagus and the vocal cords moved symmetrically. The tube was removed. The patient tolerated the procedure well. PREOPERATIVE DIAGNOSIS: Gastrointestinal blood loss. POSTOPERATIVE DIAGNOSIS: Duodenal ulcer with evidence of bleeding. Enmanuel Keen MD /[id number]
[2021-05-26] MEDS: amLODIPine 5 MG Tab PO SCH (09:10)
[2021-05-26] MEDS: Lisinopril 10 MG Tab PO SCH (10:05)
[2021-05-26] MEDS: atorvaSTATin 20 MG Tab PO SCH (10:05)
[2021-05-26] MEDS: Isosorbide Mononitrate 30 MG Tab.ER PO SCH (10:05)
[2021-05-26] MEDS: Doxazosin 4 MG Tab PO SCH (10:05)
--- NOTE | 2021-05-26 21:16 | PCM.PN ---
- General Info Date of Service: 05/26/21 Functional Status: Reports: Pain Controlled - Review of Systems General: Reports: Weakness HEENT: Reports: No Symptoms Pulmonary: Reports: No Symptoms Cardiovascular: Reports: No Symptoms Gastrointestinal: Reports: Abdominal Pain Genitourinary: Reports: No Symptoms Musculoskeletal: Reports: No Symptoms Skin: Reports: No Symptoms Psychiatric: Reports: No Symptoms - Patient Data Vitals - Most Recent: Last Vital Signs Temp 98.4 F 05/26/21 20:48 Pulse 70 05/26/21 17:25 Resp 17 05/26/21 20:48 BP 144/52 H 05/26/21 20:48 Pulse Ox 93 L 05/26/21 20:48 Weight - Most Recent: 189 lb 8.009 oz I&O - Last 24 Hours: Intake & Output 05/26/21 05/26/21 05/26/21 06:59 14:59 22:59 Intake Total 1490 1902 300 Output Total 500 1150 300 Balance 990 752 0 Lab Results Last 24 Hours: Laboratory Results - last 24 hr 05/25/21 05/26/21 Range/Units 12:35 07:02 WBC 7.4 (4.5-11.0) K/uL RBC 2.36 L (4.30-5.90) M/uL Hgb 6.8 L* (12.0-15.0) g/dL Hct 21.6 L (40.0-54.0) % MCV 92 (80-98) fL MCH 29 (27-31) pg MCHC 32 (32-36) % Plt Count 206 (150-400) K/uL Neut % (Auto) 65.5 (36-66) % Lymph % (Auto) 13.4 L (24-44) % [place] % (Auto) 12.7 H (2-6) % Eos % (Auto) 8.1 H (2-4) % Baso % (Auto) 0.3 (0-1) % Blood Type A POSITIVE Gel Antibody Screen Negative Crossmatch See Detail Med Orders - Current: Current Medications Alprazolam (Alprazolam 0.5 Mg Tab) 0.5 mg PO BEDTIME PRN PRN Reason: Anxiety Amlodipine Besylate (Amlodipine 5 Mg Tab) 10 mg PO DAILY [facility] Last Admin: 05/26/21 09:10 Dose: Not Given Documented by: Atorvastatin Calcium (Atorvastatin 20 Mg Tab) 80 mg PO DAILY [facility] Last Admin: 05/26/21 10:05 Dose: 80 mg Documented by: Doxazosin Mesylate (Doxazosin 4 Mg Tab) 4 mg PO DAILY [facility] Last Admin: 05/26/21 10:05 Dose: 4 mg Documented by: Pantoprazole Sodium 80 mg/ (Sodium Chloride) 100 mls @ 10 mls/hr IV Q10H [facility] Stop: 05/28/21 16:01 Last Admin: 05/26/21 21:00 Dose: 8 mg/hr, 10 mls/hr Documented by: Imipramine HCl (Imipramine Hcl 25 Mg Tab) 150 mg PO BEDTIME [facility] Last Admin: 05/26/21 20:59 Dose: 150 mg Documented by: Isosorbide Mononitrate (Isosorbide Mononitrate 30 Mg Tab.Er) 30 mg PO DAILY@0730 [facility] Last Admin: 05/26/21 10:05 Dose: 30 mg Documented by: Lisinopril (Lisinopril 10 Mg Tab) 10 mg PO DAILY [facility] Last Admin: 05/26/21 10:05 Dose: 10 mg Documented by: Discontinued Medications Fentanyl (Fentanyl 100 Mcg/2 Ml Sdv) Confirm Administered Dose 100 mcg .ROUTE .STK-MED ONE Stop: 05/25/21 13:15 Sodium Chloride (Normal Saline) 1,000 mls @ 125 mls/hr IV ASDIRECTED [facility] Last Admin: 05/26/21 01:49 Dose: 125 mls/hr Documented by: Ketorolac Tromethamine (Ketorolac 10 Mg Tab) 10 mg PO TID PRN PRN Reason: Pain Stop: 05/30/21 12:13 Pantoprazole Sodium (Pantoprazole 40 Mg Vial) 80 mg IVPUSH ONETIME ONE Stop: 05/25/21 15:01 Last Admin: 05/25/21 15:31 Dose: 80 mg Documented by: Propofol (Propofol 200 Mg/20 Ml Sdv) Confirm Administered Dose 200 mg .ROUTE .STK-MED ONE Stop: 05/25/21 13:15 - Exam General: Alert, Oriented HEENT: Pupils Equal, Pupils Reactive, EOMI, Mucous Membr. Moist/[place] Neck: Supple Lungs: Clear to Auscultation, Normal Respiratory Effort Cardiovascular: Regular Rate, Regular Rhythm GI/Abdominal Exam: Soft, Tender Back Exam: Normal Inspection, Full Range of Motion Extremities: Normal Inspection, Normal Range of Motion, Non-Tender, No Pedal Edema, Normal Capillary Refill Peripheral Pulses: 1+: Radial (L), Radial (R) Skin: Warm, Dry, Intact Wound/Incisions: Healing Well Neurological: No New Focal Deficit Psy/Mental Status: Alert, Normal Affect, Normal Mood - Patient Data Lab Results Last 24 hrs: Laboratory Results - last 24 hr 05/25/21 05/26/21 Range/Units 12:35 07:02 WBC 7.4 (4.5-11.0) K/uL RBC 2.36 L (4.30-5.90) M/uL Hgb 6.8 L* (12.0-15.0) g/dL Hct 21.6 L (40.0-54.0) % MCV 92 (80-98) fL MCH 29 (27-31) pg MCHC 32 (32-36) % Plt Count 206 (150-400) K/uL Neut % (Auto) 65.5 (36-66) % Lymph % (Auto) 13.4 L (24-44) % [place] % (Auto) 12.7 H (2-6) % Eos % (Auto) 8.1 H (2-4) % Baso % (Auto) 0.3 (0-1) % Blood Type A POSITIVE Gel Antibody Screen Negative Crossmatch See Detail Result Diagrams: 05/27/21 04:20 05/27/21 04:20 Sepsis Event Note - Evaluation Sepsis Screening Result: No Definite Risk - Focused Exam Vital Signs: Vital Signs Temp Temp Pulse Resp BP BP Pulse Ox 05/26/21 20:48 98.4 F 17 144/52 H 93 L 05/26/21 17:25 70 18 143/50 H 93 L 05/26/21 16:00 98.1 F 70 18 119/41 L 92 L 05/26/21 13:10 97.9 F 70 20 121/76 05/26/21 13:00 98.1 F 70 18 119/47 L 05/26/21 12:30 98.1 F 73 20 140/45 L 05/26/21 12:00 98.1 F 74 20 141/48 H 05/26/21 11:45 98.1 F 70 20 135/52 L 05/26/21 11:30 98.1 F 70 18 134/47 L 05/26/21 11:15 97.9 F 70 20 136/47 L 05/26/21 10:35 97.7 F 72 20 136/50 L 05/26/21 10:10 97.7 F 71 20 131/43 L 05/26/21 10:05 129/45 L 05/26/21 09:40 97.5 F 70 18 124/41 L 05/26/21 09:25 97.7 F 69 19 132/44 L - Problem List Review Problem List Initiated/Reviewed/Updated: Yes - My Orders Last 24 Hours: My Active Orders 05/25/21 21:00 Imipramine HCl 150 mg PO BEDTIME 05/26/21 07:30 Isosorbide Mononitrate [Imdur] 30 mg PO DAILY@0730 05/26/21 08:04 Convert IV to Saline Lock [OM.PC] Routine Transfuse Red Blood Cells [COMM] Routine 05/26/21 09:00 Doxazosin [Cardura] 4 mg PO DAILY amLODIPine [Norvasc] 10 mg PO DAILY atorvaSTATin [Lipitor] 80 mg PO DAILY lisinopriL [Prinivil] 10 mg PO DAILY 05/27/21 06:00 BASIC METABOLIC PANEL,BMP [CHEM] Routine CBC WITH AUTO DIFF [HEME] Routine - Assessment Assessment:: Assessment/Plan Comment:: Assessment/Plan: #1. GI Blood Loss- duodenal ulcer. 2 units of packed cells were given and will continue with Protonix as written. #2. Abdominal Pain: history of gastric surgery secondary to bleeding ulcer. #3. ASHD: Stent placement 3 years ago #4. Bradycardia with pacemaker placement: #5. GERD: Chronic #6. Gout: Not active presently
[2021-05-27 07:22] VITALS: BP 131/53; PULSE 68
[2021-05-27] MEDS ORDERED: Pantoprazole 40 MG Tab.CR PO SCH (09:00)
--- NOTE | 2021-05-27 10:54 | PCM.PN ---
- General Info Date of Service: 05/27/21 Subjective Update: He's feeling much better today and feels like he wants to go home. Functional Status: Reports: Pain Controlled - Review of Systems General: Reports: No Symptoms HEENT: Reports: No Symptoms Pulmonary: Reports: No Symptoms Cardiovascular: Reports: No Symptoms Gastrointestinal: Reports: No Symptoms Genitourinary: Reports: No Symptoms Musculoskeletal: Reports: No Symptoms Skin: Reports: No Symptoms Neurological: Reports: No Symptoms Psychiatric: Reports: No Symptoms - Patient Data Vitals - Most Recent: Last Vital Signs Temp 98.1 F 05/27/21 07:00 Pulse 68 05/27/21 07:00 Resp 16 05/27/21 07:00 BP 131/53 L 05/27/21 07:00 Pulse Ox 93 L 05/27/21 07:00 Weight - Most Recent: 197 lb 9.6 oz I&O - Last 24 Hours: Intake & Output 05/26/21 05/27/21 05/27/21 22:59 06:59 14:59 Intake Total 1100 Output Total 300 650 700 Balance 800 -650 -700 Lab Results Last 24 Hours: Laboratory Results - last 24 hr 05/25/21 05/27/21 05/27/21 Range/Units 12:35 04:20 04:20 WBC 8.8 (4.5-11.0) K/uL RBC 3.10 L (4.30-5.90) M/uL Hgb 9.1 L D (12.0-15.0) g/dL Hct 27.5 L (40.0-54.0) % MCV 89 (80-98) fL MCH 29 (27-31) pg MCHC 33 (32-36) % Plt Count 227 (150-400) K/uL Neut % (Auto) 59.1 (36-66) % Lymph % (Auto) 15.1 L (24-44) % Rich % (Auto) 14.7 H (2-6) % Eos % (Auto) 10.6 H (2-4) % Baso % (Auto) 0.5 (0-1) % Sodium 139 L (140-148) mmol/L Potassium 3.6 (3.6-5.2) mmol/L Chloride 106 (100-108) mmol/L Carbon Dioxide 24 (21-32) mmol/L Anion Gap 12.6 (5.0-14.0) mmol/L BUN 12 D (7-18) mg/dL Creatinine 1.1 (0.8-1.3) mg/dL Est Cr Clr Drug Dosing 61.54 mL/min Estimated GFR (MDRD) > 60 (>60) Glucose 101 (74-106) mg/dL Calcium 8.1 L (8.5-10.1) mg/dL Blood Type A POSITIVE Gel Antibody Screen Negative Crossmatch See Detail Med Orders - Current: Current Medications Alprazolam (Alprazolam 0.5 Mg Tab) 0.5 mg PO BEDTIME PRN PRN Reason: Anxiety Amlodipine Besylate (Amlodipine 5 Mg Tab) 10 mg PO DAILY [facility] Last Admin: 05/26/21 09:10 Dose: Not Given Documented by: Atorvastatin Calcium (Atorvastatin 20 Mg Tab) 80 mg PO DAILY [facility] Last Admin: 05/26/21 10:05 Dose: 80 mg Documented by: Doxazosin Mesylate (Doxazosin 4 Mg Tab) 4 mg PO DAILY [facility] Last Admin: 05/26/21 10:05 Dose: 4 mg Documented by: Imipramine HCl (Imipramine Hcl 25 Mg Tab) 150 mg PO BEDTIME [facility] Last Admin: 05/26/21 20:59 Dose: 150 mg Documented by: Isosorbide Mononitrate (Isosorbide Mononitrate 30 Mg Tab.Er) 30 mg PO DAILY@ 0730 [facility] Last Admin: 05/26/21 10:05 Dose: 30 mg Documented by: Lisinopril (Lisinopril 10 Mg Tab) 10 mg PO DAILY [facility] Last Admin: 05/26/21 10:05 Dose: 10 mg Documented by: Pantoprazole Sodium (Pantoprazole 40 Mg Tab.Cr) 40 mg PO BIDAC [facility] Discontinued Medications Fentanyl (Fentanyl 100 Mcg/2 Ml Sdv) Confirm Administered Dose 100 mcg .ROUTE .STK-MED ONE Stop: 05/25/21 13:15 Sodium Chloride (Normal Saline) 1,000 mls @ 125 mls/hr IV ASDIRECTED [facility] Last Admin: 05/26/21 01:49 Dose: 125 mls/hr Documented by: Pantoprazole Sodium 80 mg/ (Sodium Chloride) 100 mls @ 10 mls/hr IV Q10H [facility] Stop: 05/28/21 16:01 Last Admin: 05/26/21 21:00 Dose: 8 mg/hr, 10 mls/hr Documented by: Ketorolac Tromethamine (Ketorolac 10 Mg Tab) 10 mg PO TID PRN PRN Reason: Pain Stop: 05/30/21 12:13 Pantoprazole Sodium (Pantoprazole 40 Mg Vial) 80 mg IVPUSH ONETIME ONE Stop: 05/25/21 15:01 Last Admin: 05/25/21 15:31 Dose: 80 mg Documented by: Propofol (Propofol 200 Mg/20 Ml Sdv) Confirm Administered Dose 200 mg .ROUTE .STK-MED ONE Stop: 05/25/21 13:15 - Exam General: Alert, Oriented HEENT: Pupils Equal, Pupils Reactive, EOMI, Mucous Membr. Moist/[place] Neck: Supple Lungs: Clear to Auscultation, Normal Respiratory Effort Cardiovascular: Regular Rate, Regular Rhythm GI/Abdominal Exam: Normal Bowel Sounds, Soft, Non-Tender, No Organomegaly, No Distention, No Abnormal Bruit, No Mass, Pelvis Stable Back Exam: Normal Inspection, Full Range of Motion Extremities: Normal Inspection, Normal Range of Motion, Non-Tender, No Pedal Edema, Normal Capillary Refill Peripheral Pulses: 1+: Radial (L), Radial (R) Skin: Warm, Dry, Intact Neurological: No New Focal Deficit Psy/Mental Status: Alert, Normal Affect, Normal Mood - Patient Data Lab Results Last 24 hrs: Laboratory Results - last 24 hr 05/25/21 05/27/21 05/27/21 Range/Units 12:35 04:20 04:20 WBC 8.8 (4.5-11.0) K/uL RBC 3.10 L (4.30-5.90) M/uL Hgb 9.1 L D (12.0-15.0) g/dL Hct 27.5 L (40.0-54.0) % MCV 89 (80-98) fL MCH 29 (27-31) pg MCHC 33 (32-36) % Plt Count 227 (150-400) K/uL Neut % (Auto) 59.1 (36-66) % Lymph % (Auto) 15.1 L (24-44) % Rich % (Auto) 14.7 H (2-6) % Eos % (Auto) 10.6 H (2-4) % Baso % (Auto) 0.5 (0-1) % Sodium 139 L (140-148) mmol/L Potassium 3.6 (3.6-5.2) mmol/L Chloride 106 (100-108) mmol/L Carbon Dioxide 24 (21-32) mmol/L Anion Gap 12.6 (5.0-14.0) mmol/L BUN 12 D (7-18) mg/dL Creatinine 1.1 (0.8-1.3) mg/dL Est Cr Clr Drug Dosing 61.54 mL/min Estimated GFR (MDRD) > 60 (>60) Glucose 101 (74-106) mg/dL Calcium 8.1 L (8.5-10.1) mg/dL Blood Type A POSITIVE Gel Antibody Screen Negative Crossmatch See Detail Result Diagrams: 05/27/21 04:20 05/27/21 04:20 Sepsis Event Note - Evaluation Sepsis Screening Result: No Definite Risk - Focused Exam Vital Signs: Vital Signs Temp Pulse Resp BP Pulse Ox 05/27/21 07:00 98.1 F 68 16 131/53 L 93 L 05/27/21 02:53 98.1 F 95 15 120/45 L 95 - Problem List Review Problem List Initiated/Reviewed/Updated: Yes - My Orders Last 24 Hours: My Active Orders 05/27/21 09:00 Pantoprazole [ProTONIX] 40 mg PO BIDAC 05/27/21 09:29 Ready for Discharge [RC] PER UNIT ROUTINE - Assessment Assessment:: Assessment/Plan Comment:: Assessment/Plan: #1. GI Blood Loss- duodenal ulcer. hemoglobin today is 9.1 and he is feeling good with no abdominal pain. #2. Abdominal Pain: history of gastric surgery secondary to bleeding ulcer. #3. ASHD: Stent placement 3 years ago #4. Bradycardia with pacemaker placement: #5. GERD: Chronic #6. Gout: Not active presently I will discharge home today and continue with Protonix 40 mg twice a day for one month and then 40 mg once a day for one month then 20 mg a day for one month. He will not be taking ketorolac and he can start later one half of 81 mg of aspirin twice weekly. Another choice would be to take 2.5 mg of Xarelto later. - Plan Plan:: Assessment/Plan: #1. GI Blood Loss probably duodenal ulcer. He was admitted to the hospital and will do an EGD to find the reason for the significant blood loss as his hemoglobin is 7.1. #2. Abdominal Pain: history of gastric surgery secondary to bleeding ulcer. #3. ASHD: Stent placement 3 years ago #4. Bradycardia with pacemaker placement: #5. GERD: Chronic #6. Gout: Not active presently
[2021-05-27] MEDS: amLODIPine 5 MG Tab PO SCH (10:59)
[2021-05-27] MEDS: Lisinopril 10 MG Tab PO SCH (11:00)
[2021-05-27] MEDS: Doxazosin 4 MG Tab PO SCH (11:00)
[2021-05-27] MEDS: atorvaSTATin 20 MG Tab PO SCH (11:00)
[2021-05-27] MEDS: Isosorbide Mononitrate 30 MG Tab.ER PO SCH (11:00)
--- NOTE | 2021-05-27 11:06 | PCM.DCSUM1 ---
Discharge Summary - Hospital Course Diagnosis: Stroke: No - Discharge Data Discharge Date: 05/27/21 Discharge Disposition: Home, Self-Care 01 Condition: Good - Referral to Home Health Primary Care Physician: Enmanuel Keen Sr, MD - Patient Summary/Data Operative Procedure(s) Performed: EGD was done which showed a large duodenal ulcer with evidence of active bleeding. Hospital Course: After admission an EGD was done which showed evidence of a active bleeding ulcer in the duodenum. He was then placed on Protonix IV bolus as well as a drip and he became asymptomatic with no abdominal pain at the time of discharge. He did receive 2 units of packed cells. He'll be seen in the office in one week and he'll continue with Protonix 40 mg twice a day for a month and 40 mg daily for a month then 20 mg daily for the third month. He will not be taking aspirin at the present time. - Patient Instructions Diet: Heart Healthy Diet Activity: As Tolerated - Discharge Plan *PRESCRIPTION DRUG MONITORING PROGRAM REVIEWED*: No *COPY OF PRESCRIPTION DRUG MONITORING REPORT IN PATIENT YAA: No Home Medications: Home Meds ALPRAZolam [Xanax] 0.5 mg PO BEDTIME PRN 12/07/13 [History] Aspirin [Adult Aspirin] 81 mg PO DAILY 05/30/18 [History] Colchicine/Probenecid [Probenecid-Colchicine] 1 tab PO DAILY 01/25/19 [History] Doxazosin Mesylate [Cardura] 4 mg PO DAILY 10/21/20 [History] Imipramine HCl 150 mg PO BEDTIME 10/21/20 [History] Isosorbide Mononitrate [Imdur] 30 mg PO DAILY 10/21/20 [History] amLODIPine Besylate [Amlodipine Besylate] 10 mg PO DAILY 10/21/20 [History] atorvaSTATin Calcium [Atorvastatin Calcium] 80 mg PO DAILY 10/21/20 [History] lisinopriL [Lisinopril] 10 mg PO DAILY 10/21/20 [History] Pantoprazole [ProTONIX] 40 mg PO BIDAC tab.cr 05/27/21 [Rx] Patient Handouts: Gastrointestinal Bleeding, [id number] Referrals: Enmanuel Keen Sr, MD [Primary Care Provider] - 06/02/21 10:30 am - Discharge Summary/Plan Comment DC Time >30 min.: No - Patient Data Vitals - Most Recent: Last Vital Signs Temp 98.1 F 05/27/21 07:00 Pulse 68 05/27/21 07:00 Resp 16 05/27/21 07:00 BP 131/53 L 05/27/21 07:00 Pulse Ox 93 L 05/27/21 07:00 Weight - Most Recent: 197 lb 9.6 oz I&O - Last 24 hours: Intake & Output 05/26/21 05/27/21 05/27/21 22:59 06:59 14:59 Intake Total 1100 Output Total 300 650 700 Balance 800 -650 -700 Lab Results - Last 24 hrs: Laboratory Results - last 24 hr 05/25/21 05/27/21 05/27/21 Range/Units 12:35 04:20 04:20 WBC 8.8 (4.5-11.0) K/uL RBC 3.10 L (4.30-5.90) M/uL Hgb 9.1 L D (12.0-15.0) g/dL Hct 27.5 L (40.0-54.0) % MCV 89 (80-98) fL MCH 29 (27-31) pg MCHC 33 (32-36) % Plt Count 227 (150-400) K/uL Neut % (Auto) 59.1 (36-66) % Lymph % (Auto) 15.1 L (24-44) % [place] % (Auto) 14.7 H (2-6) % Eos % (Auto) 10.6 H (2-4) % Baso % (Auto) 0.5 (0-1) % Sodium 139 L (140-148) mmol/L Potassium 3.6 (3.6-5.2) mmol/L Chloride 106 (100-108) mmol/L Carbon Dioxide 24 (21-32) mmol/L Anion Gap 12.6 (5.0-14.0) mmol/L BUN 12 D (7-18) mg/dL Creatinine 1.1 (0.8-1.3) mg/dL Est Cr Clr Drug Dosing 61.54 mL/min Estimated GFR (MDRD) > 60 (>60) Glucose 101 (74-106) mg/dL Calcium 8.1 L (8.5-10.1) mg/dL Blood Type A POSITIVE Gel Antibody Screen Negative Crossmatch See Detail Med Orders - Current: Current Medications Alprazolam (Alprazolam 0.5 Mg Tab) 0.5 mg PO BEDTIME PRN PRN Reason: Anxiety Amlodipine Besylate (Amlodipine 5 Mg Tab) 10 mg PO DAILY [facility] Last Admin: 05/26/21 09:10 Dose: Not Given Documented by: Atorvastatin Calcium (Atorvastatin 20 Mg Tab) 80 mg PO DAILY [facility] Last Admin: 05/26/21 10:05 Dose: 80 mg Documented by: Doxazosin Mesylate (Doxazosin 4 Mg Tab) 4 mg PO DAILY [facility] Last Admin: 05/26/21 10:05 Dose: 4 mg Documented by: Imipramine HCl (Imipramine Hcl 25 Mg Tab) 150 mg PO BEDTIME [facility] Last Admin: 05/26/21 20:59 Dose: 150 mg Documented by: Isosorbide Mononitrate (Isosorbide Mononitrate 30 Mg Tab.Er) 30 mg PO DAILY@0730 [facility] Last Admin: 05/26/21 10:05 Dose: 30 mg Documented by: Lisinopril (Lisinopril 10 Mg Tab) 10 mg PO DAILY [facility] Last Admin: 05/26/21 10:05 Dose: 10 mg Documented by: Pantoprazole Sodium (Pantoprazole 40 Mg Tab.Cr) 40 mg PO BIDAC [facility] Discontinued Medications Fentanyl (Fentanyl 100 Mcg/2 Ml Sdv) Confirm Administered Dose 100 mcg .ROUTE .STK-MED ONE Stop: 05/25/21 13:15 Sodium Chloride (Normal Saline) 1,000 mls @ 125 mls/hr IV ASDIRECTED [facility] Last Admin: 05/26/21 01:49 Dose: 125 mls/hr Documented by: Pantoprazole Sodium 80 mg/ (Sodium Chloride) 100 mls @ 10 mls/hr IV Q10H [facility] Stop: 05/28/21 16:01 Last Admin: 05/26/21 21:00 Dose: 8 mg/hr, 10 mls/hr Documented by: Ketorolac Tromethamine (Ketorolac 10 Mg Tab) 10 mg PO TID PRN PRN Reason: Pain Stop: 05/30/21 12:13 Pantoprazole Sodium (Pantoprazole 40 Mg Vial) 80 mg IVPUSH ONETIME [facility] Stop: 05/25/21 15:01 Last Admin: 05/25/21 15:31 Dose: 80 mg Documented by: Propofol (Propofol 200 Mg/20 Ml Sdv) Confirm Administered Dose 200 mg .ROUTE .[facility] Stop: 05/25/21 13:15
== END 2021-05-27 11:20 | disposition home or self-care (01) | DRG 378 ==
LOC: JP.MS 12:06
PROVIDERS: ADMIT Internal Medicine; ATTEND Internal Medicine
PROC: 0DJ08ZZ Inspection of Upper Intestinal Tract, Via Natural or Artificial Opening Endoscopic (ICD-10-PCS; principal; 2021-05-25)
PROC: 30233N1 Transfusion of Nonautologous Red Blood Cells into Peripheral Vein, Percutaneous Approach (ICD-10-PCS; 2021-05-25)
DX: K26.4 Chronic or unspecified duodenal ulcer with hemorrhage (principal); D62 Acute posthemorrhagic anemia; I25.10 Atherosclerotic heart disease of native coronary artery without angina pectoris; R00.1 Bradycardia, unspecified; K21.9 Gastro-esophageal reflux disease without esophagitis; M10.9 Gout, unspecified; E78.00 Pure hypercholesterolemia, unspecified; K44.9 Diaphragmatic hernia without obstruction or gangrene; E66.9 Obesity, unspecified; Z95.0 Presence of cardiac pacemaker; Z91.041 Radiographic dye allergy status; Z88.1 Allergy status to other antibiotic agents; Z79.82 Long term (current) use of aspirin; Z79.899 Other long term (current) drug therapy; Z95.5 Presence of coronary angioplasty implant and graft; Z68.30 Body mass index [BMI] 30.0-30.9, adult
CPT/HCPCS: 36415; 36430; 71045; 71045-26; 80048; 80053; 85025; 86850; 86900; 86901; 86920; 86922; A9270-GY; C9113; J2704; J3010; J7030; P9016

== ENCOUNTER 2022-08-04 05:57 | Day surgery (SDC) | payer MEDICARE, BC ==
[2022-08-04] MEDS ORDERED: Nozin Nasal Sanitizer NASBOTH ONE (06:30)
[2022-08-04] MEDS ORDERED: Lactated Ringers 1,000 ML IV SCH (06:30)
[2022-08-04] MEDS ORDERED: ceFAZolin 2 GM in Sodium Chloride 0.9% 50 ML IV ONE (07:00)
[2022-08-04] MEDS ORDERED: Propofol 200 MG/20 ML SDV ONE (07:15)
[2022-08-04] MEDS ORDERED: Midazolam 1 MG/ML 2 ML SDV ONE (07:16)
[2022-08-04] MEDS ORDERED: fentaNYL 100 MCG/2 ML SDV ONE (07:16)
[2022-08-04] MEDS ORDERED: Bupivacaine 0.5% 30 ML SDV ONE (07:22)
[2022-08-04] MEDS ORDERED: fentaNYL 250 MCG/5 ML SDV ONE (08:35)
[2022-08-04] MEDS ORDERED: Acetaminophen/HYDROcodone 325-5 MG Tab PO ONE (11:00)
[2022-08-04 12:18] VITALS: BP 132/45; PULSE 72
== END 2022-08-04 12:51 | disposition home or self-care (01) ==
LOC: JP.SDS 05:57
PROVIDERS: ATTEND Specialist
DX: M11.262 Other chondrocalcinosis, left knee (principal); M23.307 Other meniscus derangements, unspecified meniscus, left knee; I10 Essential (primary) hypertension; E78.00 Pure hypercholesterolemia, unspecified; J45.909 Unspecified asthma, uncomplicated; I25.10 Atherosclerotic heart disease of native coronary artery without angina pectoris; K21.9 Gastro-esophageal reflux disease without esophagitis; Z98.890 Other specified postprocedural states; Z79.899 Other long term (current) drug therapy; Z79.82 Long term (current) use of aspirin; Z95.5 Presence of coronary angioplasty implant and graft; Z98.1 Arthrodesis status; Z91.041 Radiographic dye allergy status; Z88.1 Allergy status to other antibiotic agents; Z88.8 Allergy status to other drugs, medicaments and biological substances; Z88.3 Allergy status to other anti-infective agents
CPT/HCPCS: 29880; A9270; J0690; J2250; J2704; J3010; J3490; J7120

== ENCOUNTER → 2022-12-16 | Day surgery (SDC) | payer MEDICARE, BC ==
[~2022-12-16] MED LIST changes: +Dextrose 5%-Lactated Ringers 1,000 ML IV SCH; -Lidocaine 1% 50 ML MDV ONE; -Lidocaine 1% with EPINEPHrine 1:100,000 50 ML MDV ONE; +Midazolam 1 MG/ML 2 ML SDV ONE; +Propofol 200 MG/20 ML SDV ONE; +fentaNYL 100 MCG/2 ML SDV ONE
[2022-12-16 09:30] VITALS: BP 132/63; PULSE 68
== END ==
LOC: JP.SDS 06:39
PROVIDERS: ATTEND Surgery
DX: Z12.11 Encounter for screening for malignant neoplasm of colon (principal); K64.8 Other hemorrhoids; I10 Essential (primary) hypertension; E78.5 Hyperlipidemia, unspecified; Z79.899 Other long term (current) drug therapy
CPT/HCPCS: G0121; J2250; J2704; J3010; J7121

== ENCOUNTER 2023-02-10 18:36 | Emergency (ER) | payer MEDICARE, BC ==
[2023-02-10 18:54] VITALS: BP 151/56; PULSE 75
[2023-02-10] MEDS ORDERED: Ketorolac 15 MG/ML SDV IM ONE (19:19)
== END 2023-02-10 20:01 | disposition home or self-care (01) ==
LOC: JP.ED 18:36
DX: M25.531 Pain in right wrist (principal); I25.10 Atherosclerotic heart disease of native coronary artery without angina pectoris; E78.00 Pure hypercholesterolemia, unspecified; I10 Essential (primary) hypertension; J45.909 Unspecified asthma, uncomplicated; M10.9 Gout, unspecified; E66.9 Obesity, unspecified; Z68.31 Body mass index [BMI] 31.0-31.9, adult; Z86.16 Personal history of COVID-19; Z88.8 Allergy status to other drugs, medicaments and biological substances; Z88.1 Allergy status to other antibiotic agents; Z91.041 Radiographic dye allergy status; Z79.82 Long term (current) use of aspirin; Z79.899 Other long term (current) drug therapy
CPT/HCPCS: 96372; 99283; J1885

== ENCOUNTER 2023-02-21 13:46 | Inpatient (IN) | payer MEDICARE, BC ==
[2023-02-21 15:39] LABS: ESTIMATED GFR 46 mL/min (>60)
[2023-02-21] MEDS ORDERED: Bisacodyl 5 MG Tab PO ONE ×2 (16:00→20:00)
[2023-02-21] MEDS: Dextrose 5%-0.9% NaCl 1,000 ML IV SCH (16:01)
[2023-02-21] MEDS ORDERED: Polyethylene Glycol 3350 Powder 238 GM Bot PO ONE (17:00)
[2023-02-21] MEDS: Magnesium Hydroxide 400 MG/5 ML Susp 30 ML Cup PO SCH (23:39)
[2023-02-22] MEDS: Magnesium Hydroxide 400 MG/5 ML Susp 30 ML Cup PO SCH ×3 (01:23→03:36)
[2023-02-22] MEDS: Dextrose 5%-0.9% NaCl 1,000 ML IV SCH (02:51)
[2023-02-22] MEDS ORDERED: Polyethylene Glycol 3350 Powder 238 GM Bot PO ONE ×2 (07:35→08:45)
[2023-02-22] MEDS ORDERED: Bisacodyl 5 MG Tab PO ONE (07:45)
[2023-02-22] MEDS ORDERED: fentaNYL 100 MCG/2 ML SDV ONE (08:36)
[2023-02-22] MEDS ORDERED: Propofol 200 MG/20 ML SDV ONE (08:36)
[2023-02-22] MEDS ORDERED: Lactated Ringers 1,000 ML ONE (09:12)
[2023-02-22] MEDS ORDERED: Pantoprazole 40 MG Vial IV ONE (10:15)
[2023-02-22] MEDS ORDERED: Pantoprazole 80 MG in Sodium Chloride 0.9% 100 ML IV ONE (10:30)
[2023-02-22] MEDS: Pantoprazole 80 MG in Sodium Chloride 0.9% 100 ML IV SCH (11:05)
[2023-02-23] MEDS: Pantoprazole 80 MG in Sodium Chloride 0.9% 100 ML IV SCH ×2 (00:25→12:06)
[2023-02-23 07:08] LABS: CORONAVIRUS COVID-19 NAA NEGATIVE (NEGATIVE)
[2023-02-23] MEDS ORDERED: Propofol 200 MG/20 ML SDV ONE (07:17)
[2023-02-23] MEDS: Isosorbide Mononitrate 30 MG Tab.ER PO SCH (12:10)
[2023-02-23] MEDS ORDERED: Lisinopril 20 MG Tab PO SCH (15:30)
[2023-02-23] MEDS: Dextrose 5%-0.9% NaCl 1,000 ML IV SCH ×3 (15:46→19:35)
[2023-02-23] MEDS: amLODIPine 5 MG Tab PO SCH (16:01)
[2023-02-23] MEDS: Pantoprazole 40 MG Vial IVPUSH SCH (20:28)
[2023-02-23] MEDS: Gabapentin 300 MG Cap PO SCH (20:28)
[2023-02-23] MEDS ORDERED: hydrOXYzine HCl 25 MG Tab PO SCH (21:00)
[2023-02-23] MEDS ORDERED: atorvaSTATin 20 MG Tab PO SCH (21:00)
[2023-02-24] MEDS ORDERED: Pantoprazole 80 MG in Sodium Chloride 0.9% 100 ML IV SCH (00:15)
[2023-02-24] MEDS: Dextrose 5%-0.9% NaCl 1,000 ML IV SCH (03:37)
[2023-02-24 05:07] LABS: ESTIMATED GFR 72 mL/min (>60)
[2023-02-24] MEDS: amLODIPine 5 MG Tab PO SCH (09:07)
[2023-02-24] MEDS: Pantoprazole 40 MG Vial IVPUSH SCH (09:08)
[2023-02-24] MEDS: Gabapentin 300 MG Cap PO SCH (09:08)
[2023-02-24] MEDS: Isosorbide Mononitrate 30 MG Tab.ER PO SCH (09:08)
[2023-02-24] MEDS ORDERED: Furosemide 20 MG/2 ML VIAL IVPUSH ONE (10:00)
[2023-02-24 11:39] VITALS: BP 128/68; PULSE 73
[2023-02-25] MEDS ORDERED: Aspirin 81 MG Tab.Chew PO SCH (08:00)
[2023-02-25 18:10] LABS: H. PYLORI BREATH TEST Negative (Negative)
== END 2023-02-24 12:35 | disposition home or self-care (01) | DRG 379 ==
LOC: JP.MS 13:46
PROVIDERS: ADMIT Internal Medicine; ATTEND Internal Medicine
PROC: 30233N1 Transfusion of Nonautologous Red Blood Cells into Peripheral Vein, Percutaneous Approach (ICD-10-PCS; 2023-02-21)
PROC: 0DJ08ZZ Inspection of Upper Intestinal Tract, Via Natural or Artificial Opening Endoscopic (ICD-10-PCS; 2023-02-22)
PROC: 30233N1 Transfusion of Nonautologous Red Blood Cells into Peripheral Vein, Percutaneous Approach (ICD-10-PCS; 2023-02-22)
PROC: 0DB68ZX Excision of Stomach, Via Natural or Artificial Opening Endoscopic, Diagnostic (ICD-10-PCS; principal; 2023-02-23)
PROC: 30233N1 Transfusion of Nonautologous Red Blood Cells into Peripheral Vein, Percutaneous Approach (ICD-10-PCS; 2023-02-23)
PROC: 30233N1 Transfusion of Nonautologous Red Blood Cells into Peripheral Vein, Percutaneous Approach (ICD-10-PCS; 2023-02-24)
DX: K25.4 Chronic or unspecified gastric ulcer with hemorrhage (principal); E78.00 Pure hypercholesterolemia, unspecified; J45.909 Unspecified asthma, uncomplicated; K21.9 Gastro-esophageal reflux disease without esophagitis; M10.9 Gout, unspecified; D50.0 Iron deficiency anemia secondary to blood loss (chronic); K44.9 Diaphragmatic hernia without obstruction or gangrene; G89.29 Other chronic pain; M54.9 Dorsalgia, unspecified; M19.90 Unspecified osteoarthritis, unspecified site; F41.9 Anxiety disorder, unspecified; I25.10 Atherosclerotic heart disease of native coronary artery without angina pectoris; E66.9 Obesity, unspecified; G47.00 Insomnia, unspecified; L40.9 Psoriasis, unspecified; I49.5 Sick sinus syndrome; N40.0 Benign prostatic hyperplasia without lower urinary tract symptoms; I11.0 Hypertensive heart disease with heart failure; I50.9 Heart failure, unspecified; Z98.890 Other specified postprocedural states; Z88.1 Allergy status to other antibiotic agents; Z88.8 Allergy status to other drugs, medicaments and biological substances; Z91.041 Radiographic dye allergy status; Z95.5 Presence of coronary angioplasty implant and graft; Z95.1 Presence of aortocoronary bypass graft; Z68.29 Body mass index [BMI] 29.0-29.9, adult; Z98.1 Arthrodesis status; Z79.82 Long term (current) use of aspirin; Z95.0 Presence of cardiac pacemaker; Z79.899 Other long term (current) drug therapy
CPT/HCPCS: 0241U; 36415; 36430; 80048; 80053; 81001; 83013; 83735; 83880; 84100; 85018; 85025; 85027; 85045; 85610; 86850; 86900; 86901; 86920; 86922; 87081; A9270-GY; C9113; J1940; J2704; J3010; J3490; J7120; P9016

== ENCOUNTER 2023-03-22 07:50 | Day surgery (SDC) | payer MEDICARE, BC ==
[~2023-03-22 07:50] MED LIST changes: -Dextrose 5%-Lactated Ringers 1,000 ML IV SCH; -Midazolam 1 MG/ML 2 ML SDV ONE
[2023-03-22] MEDS ORDERED: Dextrose 5%-Lactated Ringers 1,000 ML IV SCH (08:30)
[2023-03-22 10:34] VITALS: BP 119/52; PULSE 71
== END 2023-03-22 10:38 | disposition home or self-care (01) ==
LOC: JP.SDS 07:50
PROVIDERS: ATTEND Surgery
DX: K28.9 Gastrojejunal ulcer, unspecified as acute or chronic, without hemorrhage or perforation (principal); I10 Essential (primary) hypertension; E78.5 Hyperlipidemia, unspecified; I25.9 Chronic ischemic heart disease, unspecified; Z88.1 Allergy status to other antibiotic agents; Z98.84 Bariatric surgery status; Z79.899 Other long term (current) drug therapy; Z88.8 Allergy status to other drugs, medicaments and biological substances; Z91.041 Radiographic dye allergy status
CPT/HCPCS: 43235; 87081; J2704; J3010; J7121

== ENCOUNTER 2025-09-06 05:20 | Emergency (ER) | payer MEDICARE, BC ==
[2025-09-06] MEDS: Lidocaine 1% with EPINEPHrine 1:100,000 20 ML MDV INJECT ONE (05:41)
[2025-09-06] MEDS: Bacitracin Oint 1 GM U/D Packet TOP ONE (06:12)
[2025-09-06 12:23] VITALS: BP 126/52; PULSE 71
== END 2025-09-06 13:12 | disposition home or self-care (01) ==
LOC: JP.ED 05:20
DX: S06.5XAA Traumatic subdural hemorrhage with loss of consciousness status unknown, initial encounter (principal); S01.01XA Laceration without foreign body of scalp, initial encounter; I25.10 Atherosclerotic heart disease of native coronary artery without angina pectoris; I10 Essential (primary) hypertension; E78.00 Pure hypercholesterolemia, unspecified; Z95.0 Presence of cardiac pacemaker; Z95.5 Presence of coronary angioplasty implant and graft; K21.9 Gastro-esophageal reflux disease without esophagitis; Z86.16 Personal history of COVID-19; Z95.1 Presence of aortocoronary bypass graft; Z88.1 Allergy status to other antibiotic agents; Z88.8 Allergy status to other drugs, medicaments and biological substances; Z91.041 Radiographic dye allergy status; Z79.899 Other long term (current) drug therapy; Z79.82 Long term (current) use of aspirin; W01.198A Fall on same level from slipping, tripping and stumbling with subsequent striking against other object, initial encounter; Y93.89 Activity, other specified
CPT/HCPCS: 12002; 70450; 99283; 99284; A9270; J2004